=== PATIENT | female | born 1985 | race Caucasian/White ===

== ENCOUNTER 2017-05-03 12:03 | Observation (INO) | payer MEDICAID ==
[~2017-05-03] VITALS: Ht 172.7 cm; Wt 118.1 kg
[~2017-05-03 12:03] MED LIST: DOCU-131 PO; IBUP-1223 PO; OXYC-302 PO
[2017-05-03 13:02] VITALS: BP 129/69
[2017-05-03 13:41] LABS: HEMATOCRIT 26.6 % (34.6-47.8); HEMOGLOBIN 8.6 g/dL (11.7-16.4)
[2017-05-03 13:49] LABS: ASPARTATE AMINO TRANSFERASE 11 U/L (15-37); BLOOD UREA NITROGEN 4 mg/dL (7-18)
[2017-05-03] MEDS ORDERED: CALCIUM CARBONATE 500 MG TAB.CHEW ONE (14:55)
[2017-05-03] MEDS ORDERED: CALCIUM CARBONATE 500 MG TAB.CHEW PO PRN (15:00)
[2017-05-03 16:28] LABS: DAU SCREEN DISCLAIMER
[2017-05-03] MEDS ORDERED: PROMETHAZINE 25 MG/ML, 1ML ONE (16:52)
[2017-05-03] MEDS ORDERED: MEPERIDINE/PF 100 MG/ML ONE (16:52)
[2017-05-03] MEDS ORDERED: MEPERIDINE/PF 100 MG/ML IM ONE (17:00)
[2017-05-03] MEDS ORDERED: PROMETHAZINE 25 MG/ML, 1ML IM ONE (17:00)
== END 2017-05-03 18:06 | disposition home or self-care (01) ==
LOC: LDOP 12:03 → LDIP 15:29
PROVIDERS: ADMIT Obstetrics & Gynecology; ATTEND Obstetrics & Gynecology
DX: O62.9 Abnormality of forces of labor, unspecified (principal); O26.893 Other specified pregnancy related conditions, third trimester; R10.9 Unspecified abdominal pain; Z3A.36 36 weeks gestation of pregnancy
CPT/HCPCS: 36415; 59025; 80053; 80307; 81003; 82248; 82570; 84156; 84550; 85025; 87086; 96372; G0378; J2175; J2550

== ENCOUNTER 2017-05-23 08:30 | Inpatient (IN) | payer MEDICAID ==
[~2017-05-23] VITALS: Ht 172.7 cm; Wt 122.0 kg
[2017-05-23] MEDS ORDERED: OXYTOCIN 30U/ 0.9% NaCL 500ML 500 ML IV SCH (10:05)
[2017-05-23] MEDS ORDERED: LACTATED RINGERS 1,000 ML IV SCH ×2 (10:05→10:30)
[2017-05-23] MEDS ORDERED: PREN1TAB60 PO (10:16)
[2017-05-23 10:18] VITALS: BP 134/78
[2017-05-23] MEDS ORDERED: PLEASE ENTER HEIGHT AND WEIGHT MC SCH (10:30)
[2017-05-23] MEDS ORDERED: LACTATED RINGERS 1,000 ML IVBOLUS ONE (10:30)
[2017-05-23] MEDS ORDERED: SODIUM CITRATE/CITRIC ACID 30 ML UDC PO ONE (10:30)
[2017-05-23] MEDS ORDERED: METOCLOPRAMIDE 5 MG/ML, 2ML IV ONE (10:30)
[2017-05-23 10:44] LABS: HEMATOCRIT 28.3 % (34.6-47.8); HEMOGLOBIN 9.3 g/dL (11.7-16.4)
[2017-05-23] MEDS ORDERED: NEWBORN KIT ONE (10:54)
[2017-05-23] MEDS ORDERED: OXYTOCIN 30U/ 0.9% NaCL 500ML 500 ML ONE (10:54)
[2017-05-23] MEDS ORDERED: SODIUM CITRATE/CITRIC ACID 30 ML UDC ONE (11:30)
[2017-05-23] MEDS ORDERED: METOCLOPRAMIDE 5 MG/ML, 2ML ONE (11:30)
[2017-05-23] MEDS ORDERED: morphine SULFATE/PF 1 MG/ML, 10ML ONE (11:44)
[2017-05-23] MEDS ORDERED: EPHEDRINE 50 MG/ML, 1ML ONE (12:15)
[2017-05-23] MEDS ORDERED: PHENYLEPHRINE 10 MG/ML ONE (12:15)
[2017-05-23] MEDS ORDERED: CEFAZOLIN 1,000 MG ONE (12:15)
[2017-05-23] MEDS ORDERED: ONDANSETRON 2MG/ML, 2ML ONE (12:15)
[2017-05-23] MEDS ORDERED: KETOROLAC 30 MG/1 ML ONE ×2 (12:15)
[2017-05-23] MEDS: LACTATED RINGERS 1,000 ML IV SCH ×2 (13:45→21:45)
[2017-05-23] MEDS: OXYTOCIN 30U/ 0.9% NaCL 500ML 500 ML IV SCH ×2 (13:45→23:45)
[2017-05-23] MEDS ORDERED: RHOGAM FROM BLOOD BANK 1 NOTE EA IM/IV ONE (14:00)
[2017-05-23] MEDS: KETOROLAC 30 MG/1 ML IV SCH ×2 (14:00→21:48)
[2017-05-23] MEDS ORDERED: ONDANSETRON 2MG/ML, 2ML IV PRN ×2 (14:00→16:30)
[2017-05-23] MEDS ORDERED: MISOPROSTOL 200 MCG TABLET PR PRN (14:00)
[2017-05-23] MEDS ORDERED: MEASLES,MUMPS&RUBELLA VACC/PF 0.5 ML SQ-VACC PRN (14:00)
[2017-05-23] MEDS ORDERED: DIPH,PERTUSS(ACELL),TET VAC/PF NC IM-VACC PRN (14:00)
[2017-05-23] MEDS ORDERED: MEPERIDINE/PF 50 MG/ML IM PRN (14:00)
[2017-05-23] MEDS ORDERED: SIMETHICONE 80 MG CHEW TAB PO PRN (14:00)
[2017-05-23 16:20] VITALS: BP 124/88
[2017-05-23] MEDS ORDERED: DIPHENHYDRAMINE 50 MG/ML, 1ML IVPush PRN (16:30)
[2017-05-23] MEDS ORDERED: HYDROmorphone 1 MG/ML, 1ML IVPush PRN (16:30)
[2017-05-23] MEDS ORDERED: NALOXONE 0.4 MG/ML, 1ML IV PRN (16:30)
[2017-05-23] MEDS ORDERED: OXYcodone/APAP 5/325MG TABLET PO PRN (16:30)
[2017-05-23 19:49] LABS: HEMATOCRIT 28.2 % (34.6-47.8); HEMOGLOBIN 9.1 g/dL (11.7-16.4); WHITE BLOOD COUNT 7.3 x10^3/uL (3.4-10)
[2017-05-23 20:30] VITALS: BP 112/67
[2017-05-23] MEDS: OXYcodone IR 5MG TABLET PO PRN (21:41)
[2017-05-23] MEDS: DOCUSATE 100 MG CAPSULE PO PRN (21:41)
[2017-05-24 00:20] VITALS: BP 119/67
[2017-05-24] MEDS: KETOROLAC 30 MG/1 ML IV SCH ×2 (01:37→07:49)
[2017-05-24 04:22] VITALS: BP 122/67
[2017-05-24] MEDS: LACTATED RINGERS 1,000 ML IV SCH (05:45)
[2017-05-24] MEDS: OXYcodone IR 5MG TABLET PO PRN ×4 (06:47→22:07)
[2017-05-24 07:55] VITALS: BP 120/68
[2017-05-24] MEDS: PRENATAL VIT/IRON/FA 1 EACH TABLET PO SCH (09:00)
[2017-05-24 12:00] VITALS: BP 143/81
[2017-05-24] MEDS: DOCUSATE 100 MG CAPSULE PO PRN (12:27)
[2017-05-24] MEDS: IBUPROFEN 600 MG TABLET PO PRN ×2 (17:04→23:23)
[2017-05-24 19:30] VITALS: BP 123/84
[2017-05-25] MEDS: OXYcodone IR 5MG TABLET PO PRN ×4 (02:27→12:21)
[2017-05-25 07:30] VITALS: BP 145/75
[2017-05-25] MEDS: PRENATAL VIT/IRON/FA 1 EACH TABLET PO SCH (07:52)
[2017-05-25] MEDS: DOCUSATE 100 MG CAPSULE PO PRN (07:52)
[2017-05-25] MEDS ORDERED: FERROUS SULFATE 325 MG TABLET PO SCH (08:00)
[2017-05-25] MEDS ORDERED: ASCORBIC ACID 500 MG TABLET PO SCH (08:00)
[2017-05-25] MEDS ORDERED: IBUP-1223 PO (11:39)
[2017-05-25] MEDS ORDERED: DOCU-131 PO (11:40)
[2017-05-25] MEDS ORDERED: OXYC-302 PO (11:40)
== END 2017-05-25 12:37 | disposition home or self-care (01) | DRG 766 ==
LOC: LDIP 09:59 → 2NW 15:44
PROVIDERS: ADMIT Obstetrics & Gynecology; ATTEND Obstetrics & Gynecology
PROC: 10D00Z1 Extraction of Products of Conception, Low, Open Approach (ICD-10-PCS; principal; 2017-05-23)
PROC: 0UB70ZZ Excision of Bilateral Fallopian Tubes, Open Approach (ICD-10-PCS; 2017-05-23)
PROC: 3E0234Z Introduction of Serum, Toxoid and Vaccine into Muscle, Percutaneous Approach (ICD-10-PCS; 2017-05-23)
DX: O34.211 Maternal care for low transverse scar from previous cesarean delivery (principal); F32.9 Major depressive disorder, single episode, unspecified; D64.9 Anemia, unspecified; E66.3 Overweight; O62.1 Secondary uterine inertia; O99.02 Anemia complicating childbirth; O99.344 Other mental disorders complicating childbirth; Z30.2 Encounter for sterilization; Z37.0 Single live birth; Z3A.39 39 weeks gestation of pregnancy; Z81.8 Family history of other mental and behavioral disorders; Z82.5 Family history of asthma and other chronic lower respiratory diseases; Z23 Encounter for immunization
CPT/HCPCS: 36415; 85025; 86850; 86900; 88302; J0690; J1885; J2274; J2405; J2370; J2590; J2765; J7120